=== PATIENT | male | born 1980 | race Caucasian/White ===

== ENCOUNTER 2024-11-04 20:57 | Emergency (ER) | payer OTHER ==
[~2024-11-04] VITALS: Ht 190.5 cm; Wt 102.1 kg
[2024-11-04] MEDS ORDERED: CEFTRIAXONE SODIUM 1,000 MG VIAL IM ONE (22:00)
[2024-11-04] MEDS ORDERED: DIPHTH,PERTUSS(ACELL),TET VAC 0.5 ML SYRINGE IM ONE (22:00)
[2024-11-04] MEDS ORDERED: DUI500 PO (22:39)
== END 2024-11-04 22:50 | disposition home or self-care (01) ==
LOC: ER 20:57
DX: S01.21XA Laceration without foreign body of nose, initial encounter (principal); S02.2XXA Fracture of nasal bones, initial encounter for closed fracture; S09.90XA Unspecified injury of head, initial encounter; X58.XXXA Exposure to other specified factors, initial encounter; Y93.B1 Activity, exercise machines primarily for muscle strengthening; Y92.39 Other specified sports and athletic area as the place of occurrence of the external cause; Y99.8 Other external cause status
CPT/HCPCS: 12013; 70450; 70486; 72125; 90471; 90714; J1670

== ENCOUNTER 2024-11-12 07:21 | Emergency (ER) | payer OTHER ==
[~2024-11-12] VITALS: Ht 182.9 cm; Wt 104.3 kg
[~2024-11-12 07:21] MED LIST: DUI500 PO
== END 2024-11-12 10:00 | disposition home or self-care (01) ==
LOC: ER 07:21
DX: Z48.02 Encounter for removal of sutures (principal)